=== PATIENT | male | born 1965 | race Hispanic/Latino ===

== ENCOUNTER 2021-05-12 21:45 | Emergency (ER) | payer OTHER, SELFPAY ==
[2021-05-12] MEDS ORDERED: cloNIDine HCL 0.1 MG TAB ONE (22:01)
[2021-05-12] MEDS ORDERED: PHENYLEPHRINE 0.5% NOSE 15ML NAS ONE (22:02)
[2021-05-12 22:22] LABS: Absolute Lymphocytes (CBC) 1.8 K/uL (0.7-4.9); Lymphocytes % 20.1 % (15.3-44.8); MPV 8.5 fL (7.6-11.3); RBC Red Blood Cell Count 5.19 M/uL (4.33-5.43)
[2021-05-12 22:35] LABS: Potassium 3.1 mmol/L (3.5-5.1)
--- NOTE | 2021-05-12 23:35 | EDPHYS ---
Physician Documentation [facility] Name: Ranjan Coulter Age: 55 yrs Sex: Male : 1965 Arrival Date: 05/12/2021 Time: 21:46 Bed 7 Private MD: ED Physician Edvin Mcadams HPI: 05/12 23:05 This 55 yrs old Male presents to ER via EMS with complaints of Nose Bleed. kb 23:05 The patient presents with a nose bleed, occurred from an unknown cause, that is kb continuous bright red, causative factors include: unknown, and the bleeding is not resolved and continues in ER. Onset: The symptoms/episode began/occurred at 20:00. Modifying factors: The symptoms are alleviated by nothing. the symptoms are aggravated by nothing. Associated signs and symptoms: Loss of consciousness: the patient experienced no loss of consciousness. Severity of symptoms: At their worst the symptoms were moderate in the emergency department the symptoms are unchanged. The patient has experienced a previous episode. The patient has not recently seen a physician. Pt reports nosebleed started at 2000. States he had a short nosebleed at 0400 this morning, but it resolved on its own. States this has happened before in 2018 and he has nosebleeds for a week. States he came in this time because he didn't want to miss work. Historical: - Allergies: 21:52 No Known Allergies; sm5 - Home Meds: 21:52 atenolol Oral [Active]; sm5 - PMHx: 21:52 Hypertensive disorder; sm5 - Immunization history:: Client reports receiving the 2nd dose of the Covid vaccine. - Social history:: Smoking status: Patient reports the use of cigarette tobacco products, denies chronic smoking, but will smoke occasionally. ROS: 22:05 Constitutional: Negative for fever, chills, and weight loss. kb 22:05 ENT: Positive for nose bleed. 22:05 All other systems are negative. Exam: 23:05 Constitutional: This is a well developed, well nourished patient who is awake, alert, kb and in no acute distress. Head/Face: Normocephalic, atraumatic. Cardiovascular: Regular rate and rhythm with a normal S1 and S2. No gallops, murmurs, or rubs. No pulse deficits. Respiratory: Respirations even and unlabored. No increased work of breathing. Talking in full sentences Skin: Warm, dry with normal turgor. Normal color. MS/ Extremity: Pulses equal, no cyanosis. Neurovascular intact. Full, normal range of motion. Neuro: Awake and alert, GCS 15, oriented to person, place, time, and situation. Moves all extremities. Normal gait. Psych: Awake, alert, with orientation to person, place and time. Behavior, mood, and affect are within normal limits. 23:05 ENT: Nose: bleeding, is noted from both nares, and is moderate, no septal hematoma is appreciated. Vital Signs: 21:50 BP 204 / 111; Pulse 62; Resp 20; Pulse Ox 96% on R/A; Weight 93.44 kg; Height 5 ft. 9 sm5 in. (175.26 cm); Pain 0/10; 22:20 BP 168 / 111; Pulse 61; Resp 19; Pulse Ox 98% on R/A; sm5 23:33 BP 152 / 96; Pulse 57; Resp 19; Pulse Ox 97% ; sm5 21:50 Body Mass Index 30.42 (93.44 kg, 175.26 cm) sm5 MDM: 21:53 Patient medically screened. kb 22:05 Data reviewed: vital signs, nurses notes. Data interpreted: Pulse oximetry: on room air kb is 96 %. Interpretation: normal. 23:04 ED course: Bleeding has resolved. Will continue to monitor. kb 23:33 Counseling: I had a detailed discussion with the patient and/or guardian regarding: the kb historical points, exam findings, and any diagnostic results supporting the discharge/admit diagnosis, lab results, the need for outpatient follow up, an ENT specialist, to return to the emergency department if symptoms worsen or persist or if there are any questions or concerns that arise at home. ED course: Bleeding has not returned. BP is decreased. Pt has no chest pain, shortness of breath, headache, dizziness. . 05/12 21:57 Order name: CBC with Diff; Complete Time: 22:27 kb 05/12 20:57 Order name: Basic Metabolic Panel; Complete Time: 22:42 kb Administered Medications: 22:08 Drug: Percy-Synephrine (phenylephrine) [place] 0.5 % 2 sprays Route: Intranasal; Site: both sm5 nares; 22:08 Drug: cloNIDine 0.2 mg Route: PO; sm5 23:56 Drug: Potassium Chloride 20 mEq Route: PO; sm5 Disposition Summary: 05/12/21 23:35 Discharge Ordered Location: Home kb Condition: Stable kb Diagnosis - Hypokalemia kb - Epistaxis kb - Essential (primary) hypertension kb Followup: kb - With: Private Physician - When: 2 - 3 days - Reason: Recheck today's complaints, Continuance of care, Re-evaluation by your physician Followup: kb - With: Emergency Department - When: As needed - Reason: Worsening of condition Discharge Instructions: - Discharge Summary Sheet kb - Hypertension, Adult kb - Nosebleed, Adult, [id number] kb Forms: - Medication Reconciliation Form kb - Thank You Letter kb - Antibiotic Education kb - Prescription Opioid Use kb Signatures: Dispatcher [employer] Angela Meraz, ADJUNCT ART HISTORY INSTRUCTOR-C VERONICA-Minal Espino, RN RN sm5
--- NOTE | 2021-05-12 23:35 | ER ---
Nurse's Notes [facility] Name: Ranjan Coulter Age: 55 yrs Sex: Male : 1965 Arrival Date: 05/12/2021 Time: 21:46 Bed 7 Private MD: Diagnosis: Hypokalemia;Epistaxis;Essential (primary) hypertension Presentation: 05/12 21:50 Chief complaint: Patient states: nose bleed going on 2 hours. has a hx of this in the 5 past from high blood pressure. Coronavirus screen: Vaccine status: Patient reports receiving the 2nd dose of the covid vaccine. Ebola Screen: No symptoms or risks identified at this time. Initial Sepsis Screen: Does the patient meet any 2 criteria? No. Patient's initial sepsis screen is negative. Does the patient have a suspected source of infection? No. Patient's initial sepsis screen is negative. Risk Assessment: Do you want to hurt yourself or someone else? Patient reports no desire to harm self or others. Onset of symptoms was May 12, 2021 at 19:51. 21:50 Method Of Arrival: EMS [facility] 21:50 Acuity: SARA 3 5 Triage Assessment: 21:52 General: Appears in no apparent distress. Behavior is cooperative. Pain: Denies pain. 5 EENT: Nares with bleeding noted. Neuro: No deficits noted. Level of Consciousness is awake, alert, obeys commands, Oriented to person, place, time, situation. Cardiovascular: No deficits noted. Capillary refill < 3 seconds Patient's skin is warm and dry. Respiratory: No deficits noted. Airway is patent Trachea midline Respiratory effort is even, unlabored. Historical: - Allergies: 21:52 No Known Allergies; 5 - Home Meds: 21:52 atenolol Oral [Active]; 5 - PMHx: 21:52 Hypertensive disorder; 5 - Immunization history:: Client reports receiving the 2nd dose of the Covid vaccine. - Social history:: Smoking status: Patient reports the use of cigarette tobacco products, denies chronic smoking, but will smoke occasionally. Screenin:53 Abuse screen: Denies threats or abuse. Denies injuries from another. Nutritional 5 screening: No deficits noted. Tuberculosis screening: No symptoms or risk factors identified. Fall Risk None identified. Assessment: 21:53 Reassessment: nose clamp placed on pt's nose. sm5 23:56 Reassessment: bleeding stopped. 5 Vital Signs: 21:50 BP 204 / 111; Pulse 62; Resp 20; Pulse Ox 96% on R/A; Weight 93.44 kg; Height 5 ft. 9 sm5 in. (175.26 cm); Pain 0/10; 22:20 BP 168 / 111; Pulse 61; Resp 19; Pulse Ox 98% on R/A; sm5 23:33 BP 152 / 96; Pulse 57; Resp 19; Pulse Ox 97% ; sm5 21:50 Body Mass Index 30.42 (93.44 kg, 175.26 cm) 5 ED Course: 21:46 Patient arrived in ED. 21:50 Minal Daniels, RN is Primary Nurse. 5 21:52 Triage completed. 5 21:53 [facility] Fish[facility]C [facility] kb 21:53 Edvin Mcadams MD is Attending Physician. kb 21:53 Arm band placed on right wrist. sm5 21:53 Patient has correct armband on for positive identification. Placed in gown. Bed in low sm5 position. Call light in reach. Side rails up X2. 22:40 Inserted saline lock: 20 gauge in right antecubital area, using aseptic technique. sm5 Blood collected. 23:57 No provider procedures requiring assistance completed. IV discontinued, intact, sm5 bleeding controlled, No redness/swelling at site. Pressure dressing applied. Administered Medications: 22:08 Drug: Percy-Synephrine (phenylephrine) [place] 0.5 % 2 sprays Route: Intranasal; Site: both 5 nares; 22:08 Drug: cloNIDine 0.2 mg Route: PO; sm5 23:56 Drug: Potassium Chloride 20 mEq Route: PO; sm5 Outcome: 23:35 Discharge ordered by . kb 23:57 Discharged to home ambulatory. 5 23:57 Condition: good 23:57 Discharge instructions given to patient, Instructed on discharge instructions, follow up and referral plans. Demonstrated understanding of instructions, follow-up care. 23:57 Patient left the ED. 5 Signatures: Angela Fishman FNP-C WELDING MACHINE OPERATOR HELPER [employer] Minal Daniels, RN RN [facility]
[2021-05-12] MEDS ORDERED: POTASSIUM CL SA 10 MEQ TAB PO ONE (23:50)
[2021-05-13 02:19] VITALS: BP 152/96; O2SAT 97
== END 2021-05-12 23:57 | disposition home or self-care (01) ==
LOC: ER 21:45
DX: R04.0 Epistaxis (principal); E87.6 Hypokalemia; I10 Essential (primary) hypertension; F17.210 Nicotine dependence, cigarettes, uncomplicated
CPT/HCPCS: 36415; 80048; 85025; 99284